=== PATIENT | male | born 1965 | race Caucasian/White ===

== ENCOUNTER 2020-06-07 19:17 | Emergency (ER) | payer MEDICAID, SELFPAY ==
[2020-06-07] VITALS (7 sets, daily range): BP systolic 142–203; BP diastolic 84–108; PULSE 100–111; RESP 15–29; TEMP 36.7; O2SAT 92–97; BMI 33.3
--- NOTE | 2020-06-07 19:18 | ECG_ITS ---
[facility] Test Date: 2020-06-07 Pat Name: Chris Vazquez Department: Room: Gender: Male Sales Enablement Specialist: : 1965 Requested By: Luis Alberto Ramirez Order Number: [id number] Papa MD: SHOLA BARCLAY Measurements Intervals [place] Rate: 106 P: 56 [place]: 162 QRS: 27 QRSD: 89 T: 70 QT: 332 QTc: 442 Interpretive Statements SINUS TACHYCARDIA ABNORMAL RHYTHM ECG Compared to ECG 03/29/2018 15:52:33 Sinus rhythm no longer present T-wave abnormality no longer present Electronically Signed On 06-08-2020 18:14:13 RETAIL PERFORMANCE SPECIALIST by SHOLA BARCLAY [id number]
--- NOTE | 2020-06-07 19:18 | XRR_ITS ---
PROCEDURE INFORMATION: Exam: XR Chest, 1 View Exam date and time: 06/07/2020 7:42 PM Age: 55 years old Clinical indication: Chest pain; Prior surgery; Surgery type: Stent; Additional info: Cp TECHNIQUE: Imaging protocol: XR of the chest Views: 1 view. COMPARISON: CR Chest 1 [place] [id number] 03/29/2018 12:45 PM FINDINGS: Lungs: Unremarkable. No consolidation. Pleural space: Unremarkable. No pleural effusion. No pneumothorax. Heart/Mediastinum: Unremarkable. No cardiomegaly. Bones/joints: No acute fracture. XR/XR chest 1V portable [id number] IMPRESSION: No acute findings.
--- NOTE | 2020-06-07 19:31 | W.ED.CHESTPA ---
HPI - Chest Pain General: Chief Complaint: Chest Pain Stated Complaint: CP Time Seen by Provider: 06/07/20 19:25 Source: patient and EMS Mode of arrival: EMS Limitations: no limitations History of Present Illness: HPI narrative: 55-year-old male who states he is having chest pain today. Patient came in by EMS was given aspirin and nitro and states that nitro took his pain away. He has a long history of heart disease and has had stents in the past. He states it was a pressure type pain in the center of his chest. He denies any shortness of breath. Patient denies any vomiting or diarrhea. Patient was diaphoretic per EMS. He states this feels like his previous heart attacks. Associated symptoms: Deny abdominal pain, dyspnea, fever(s), nausea or vomiting Review of Systems Const: Denies: fever(s), chills, body aches or change in appetite Eyes: Denies: blurry vision or eye discomfort ENMT: Denies: throat pain or dental pain Card: Reports: chest pain Resp: Denies: dyspnea GI: Denies: abdominal pain, nausea, vomiting or diarrhea : Denies: dysuria Musc: Denies: neck pain or back pain Skin/Breast: Denies: rash Neuro: Denies: headache(s) Psych: Denies: depression Melvin/Lymph: Denies: easy bruising All/Imm: Denies: urticaria PFSH ED PFSH: Medical History (Updated 06/07/20 @ 22:23 by Luis Alberto Ramirez MD) CAD (coronary atherosclerotic disease) CHF (congestive heart failure) Dyslipidemia GERD (gastroesophageal reflux disease) HTN (hypertension) Ischemic cardiomyopathy Major depressive disorder Myocardial infarct, old Tobacco abuse Surgical History S/P angioplasty with stent Social History Smoking and tobacco status: former smoker Alcohol intake: former Lives independently: No Housing: Shelter Marital status: Single Physical Exam Const: COMMON NORMALS: no acute distress, patient oriented x3 and healthy appearing HENMT: COMMON NORMALS: normocephalic and atraumatic HEAD & SCALP: normocephalic and atraumatic Eye: COMMON NORMALS: Equal, round and reactive pupils present and EOMs intact bilaterally PUPIL: Yes Equal, round and reactive pupils present Neck/C-Spine: COMMON NORMALS: full ROM and supple Chest: COMMONS NORMALS: normal inspection of the chest and normal palpation of entire chest wall Resp: COMMON NORMALS: normal respiratory effort, No retractions, No use of accessory muscles and clear to auscultation bilaterally AUSCULTATION: clear to auscultation bilaterally Cardio: COMMON NORMALS: regular rate, regular rhythm and No murmurs present (Cardio) RATE: regular rate RHYTHM: regular rhythm GI: COMMON NORMALS: Normal to inspection, nondistended, normoactive bowel sounds present, Soft to palpation, non-tender and no masses PALPATION: Yes Soft to palpation Extremity: COMMON NORMALS: normal to inspection and full ROM Neuro: COMMON NORMALS: patient oriented x3, moves all extremities and no focal motor deficits Psych: COMMON NORMALS: mental status grossly normal, Normal thought process present and cooperative THOUGHT PROCESS: Normal thought process present Skin: COMMON NORMALS: no rashes or lesions noted and no wounds GENERAL SKIN EXAM: no rashes or lesions noted Course Vital Signs: Vital signs: Vital Signs Temperature 98.0 F 06/07/20 19:17 Pulse Rate 105 H 06/07/20 22:13 Respiratory Rate 19 H 06/07/20 22:13 Blood Pressure 142/108 06/07/20 22:13 Pulse Oximetry 92 06/07/20 22:13 MDM - Chest Pain MDM Narrative: Medical decision making narrative: 2044 spoke to patient informed of initial troponin. He states he feels much improved and would like to go back home. I offered him admission stating he has multiple risk factors but he states he does not want to stay in the hospital. Was able to convince him to stay for a 2-hour troponin. 2223 Chris presents here with chest pain. Patient second troponin had no change. Patient refuses admission. Will discharge him back to the care home. He is to return if worsening. He understands agrees to plan. He has no signs of pulmonary embolism or aortic dissection. Lab Data: Labs: Lab Results 06/07/20 06/07/20 06/07/20 Range/Units 19:50 19:50 19:50 WBC 11.9 H (4.0-10.0) 10^3/ uL RBC 5.00 (4.1-5.3) 10^6/u L Hgb 13.1 (11.7-16.6) g/dL Hct 43.6 (42.0-52.0) % MCV 87.2 (80-94) fL MCH 26.2 L (28.0-34.0) pg MCHC 30.0 (30.0-36.0) g/dL RDW 13.9 (12.1-15.1) % Plt Count 553 H (130-400) 10^3/c mm MPV 10.0 (7.4-10.4) fL Neut % (Auto) 73.5 % Lymph % (Auto) 17.4 % [place] % (Auto) 6.6 % Eos % (Auto) 0.9 % Baso % (Auto) 1.3 % Neut # (Auto) 8.77 H (1.8-7.7) 10^3/u L Lymph # (Auto) 2.1 (0.8-4.8) 10^3/u L [place] # (Auto) 0.8 (0.2-0.9) 10^3/u L Eos # (Auto) 0.1 (0.0-0.8) 10^3/u L Baso # (Auto) 0.2 H (0.0-0.1) 10^3/u L Nucleated RBC % (a uto) 0 % Nucleated RBCs # 0.0 /100WBC D-Dimer (0-0.59) ug/mIFE U Sodium 135 L (136-145) mmol/L Potassium 3.7 (3.5-5.1) mmol/L Chloride 95 L (98-107) mmol/L Carbon Dioxide 27 (22-29) mmol/L Anion Gap 16.7 (5-19) BUN 17 (6-20) mg/dL Creatinine 1.0 (0.7-1.2) mg/dL GFR Calculation 77.6 L (90-130) mL/min Glucose 154 H (65-115) mg/dL Calculated Osmolal ity 285 (285-295) mOsm/k g Calcium 9.5 (8.5-10.5) mg/dL Total Bilirubin 0.2 (0.15-1.2) mg/dL AST 15 (0-40) U/L ALT 16 (0-41) U/L Alkaline Phosphata se 112 (40-130) IU/L Troponin T Baselin e 17 H (0-15) ng/L Delta Troponin T (0-10) ABS# Total Protein 7.5 (6.6-8.7) g/dL Albumin 3.9 (3.5-5.2) g/dL Globulin 3.6 (1.3-4.6) g/dL Lipase 19 (13-60) U/L 06/07/20 06/07/20 Range/Units 19:50 21:46 WBC (4.0-10.0) 10^3/ uL RBC (4.1-5.3) 10^6/u L Hgb (11.7-16.6) g/dL Hct (42.0-52.0) % MCV (80-94) fL MCH (28.0-34.0) pg MCHC (30.0-36.0) g/dL RDW (12.1-15.1) % Plt Count (130-400) 10^3/c mm MPV (7.4-10.4) fL Neut % (Auto) % Lymph % (Auto) % [place] % (Auto) % Eos % (Auto) % Baso % (Auto) % Neut # (Auto) (1.8-7.7) 10^3/u L Lymph # (Auto) (0.8-4.8) 10^3/u L [place] # (Auto) (0.2-0.9) 10^3/u L Eos # (Auto) (0.0-0.8) 10^3/u L Baso # (Auto) (0.0-0.1) 10^3/u L Nucleated RBC % (a uto) % Nucleated RBCs # /100WBC D-Dimer 0.41 (0-0.59) ug/mIFE U Sodium (136-145) mmol/L Potassium (3.5-5.1) mmol/L Chloride (98-107) mmol/L Carbon Dioxide (22-29) mmol/L Anion Gap (5-19) BUN (6-20) mg/dL Creatinine (0.7-1.2) mg/dL GFR Calculation (90-130) mL/min Glucose (65-115) mg/dL Calculated Osmolal ity (285-295) mOsm/k g Calcium (8.5-10.5) mg/dL Total Bilirubin (0.15-1.2) mg/dL AST (0-40) U/L ALT (0-41) U/L Alkaline Phosphata se (40-130) IU/L Troponin T Baselin e (0-15) ng/L Delta Troponin T 0.71 (0-10) ABS# Total Protein (6.6-8.7) g/dL Albumin (3.5-5.2) g/dL Globulin (1.3-4.6) g/dL Lipase (13-60) U/L Imaging Data^: CXR: Radiologist's impression: [place] [address] XRay Report Signed Patient: Chris Vazquez Unit #: [id number] : 1965 Age/Sex: 55 / M ADM Date: 06/07/20 Loc: ER Room/Bed: Attending Dr: Ordering Provider/Ordering MD: Luis Alberto Ramirez MD Date of Service: 06/07/20 Procedure(s): XR chest 1V portable [id number] Accession Number(s): [id number] Report Number: [id number] PROCEDURE INFORMATION: Exam: XR Chest, 1 View Exam date and time: 06/07/2020 7:42 PM Age: 55 years old Clinical indication: Chest pain; Prior surgery; Surgery type: Stent; Additional info: Cp TECHNIQUE: Imaging protocol: XR of the chest Views: 1 view. COMPARISON: CR Chest 1 [place] [id number] 03/29/2018 12:45 PM FINDINGS: Lungs: Unremarkable. No consolidation. Pleural space: Unremarkable. No pleural effusion. No pneumothorax. Heart/Mediastinum: Unremarkable. No cardiomegaly. Bones/joints: No acute fracture. XR/XR chest 1V portable [id number] IMPRESSION: No acute findings. EKG Data^: EKG 1: Attestation: I personally reviewed and interpreted this EKG as follows: EKG interpretation date: 06/07/20 EKG interpretation time: 19:21 Interpretation: sinus tach hr [address] or t wave abnormalities qrs 89 qtc 394 EKG 2: Attestation: I personally reviewed and interpreted this EKG as follows: EKG interpretation date: 06/07/20 EKG interpretation time: 21:33 Interpretation: sinus tach hr [address] or t wave abnormalities qrs 87 qtc 384 Discharge Plan Discharge Patient Disposition: Home Clinical Impression: Chest pain Qualifiers: Chest pain type: unspecified Qualified Code(s): R07.9 - Chest pain, unspecified Condition: Stable Prescriptions: No Action aspirin [Adult Low Dose Aspirin] 81 mg tablet,delayed release (DR/EC) 81 mg PO DAILY RF: 0 furosemide 40 mg tablet 40 mg PO QAM RF: 0 lisinopril 5 mg tablet 5 mg PO DAILY RF: 0 loratadine [Claritin] 10 mg tablet 10 mg PO DAILY RF: 0 venlafaxine 150 mg capsule,extended release 24hr 150 mg PO QAM RF: 0 simvastatin 10 mg tablet 10 mg PO .HS RF: 0 metoprolol tartrate 25 mg tablet 12.5 mg PO BID RF: 0 quetiapine 300 mg tablet 300 mg PO .HS RF: 0 methocarbamol 750 mg tablet 1,500 mg PO QID PRN (Reason: UNKNOWN) RF: 0 magnesium hydroxide [Milk of Magnesia] 400 mg/5 mL suspension 30 ml PO DAILY PRN (Reason: Constipation) RF: 0 acetaminophen [Tylenol] 325 mg tablet 650 mg PO QID PRN (Reason: Pain) RF: 0 Provera 10 mg Tablet 10 mg PO DAILY RF: 0 omeprazole 20 mg Capsule,Delayed Release(Dr/Ec) 20 mg PO DAILY RF: 0 Flonase 50 mcg/actuation [place],Suspension 2 spray INTRANASAL DAILY RF: 0 Discharge Orders: Discharge Order (Routine); Ordered 06/07/20 Ordered By: Luis Alberto Ramirez Referrals: Raul Vergara MD [Primary Care Provider] - 1-3 days Discharge Diet: Advance as tolerated Discharge Activity: Resume usual activity Patient Instructions: Chest Pain (ED) Coding Level of Care Code ED General Road Foreman for Chg Fwd Exam Comprehensive
[2020-06-07 20:06] LABS: Basophils # 0.2 10^3/uL (0.0-0.1); Basophils % 1.3 %; Eosinophils # 0.1 10^3/uL (0.0-0.8); Eosinophils % 0.9 %; Hematocrit 43.6 % (42.0-52.0); Hemoglobin 13.1 g/dL (11.7-16.6); Lymphocytes # 2.1 10^3/uL (0.8-4.8); Lymphocytes % 17.4 %; Mean Corpuscular Hemoglobin 26.2 pg (28.0-34.0); Mean Corpuscular Volume 87.2 fL (80-94); Monocytes # 0.8 10^3/uL (0.2-0.9); Monocytes % 6.6 %; Neutrophils # 8.77 10^3/uL (1.8-7.7); Neutrophils % 73.5 %; Nucleated Red Blood Cells % 0 %; Platelet Count 553 10^3/cmm (130-400); Red Cell Distribution Width 13.9 % (12.1-15.1); White Blood Count 11.9 10^3/uL (4.0-10.0)
[2020-06-07 20:19] LABS: D Dimer 0.41 ug/mIFEU (0-0.59)
[2020-06-07 20:29] LABS: Alanine Aminotransferase 16 U/L (0-41); Albumin Level 3.9 g/dL (3.5-5.2); Alkaline Phosphatase 112 IU/L (40-130); Anion Gap 16.7 (5-19); Aspartate Amino Transferase 15 U/L (0-40); Blood Urea Nitrogen 17 mg/dL (6-20); Calcium 9.5 mg/dL (8.5-10.5); Carbon Dioxide 27 mmol/L (22-29); Chloride 95 mmol/L (98-107); Globulin 3.6 g/dL (1.3-4.6); Glomerular Filtration Rate 77.6 mL/min (90-130); Glucose 154 mg/dL (65-115); Lipase 19 U/L (13-60); Osmolality Calculated 285 mOsm/kg (285-295); Potassium 3.7 mmol/L (3.5-5.1); Sodium 135 mmol/L (136-145); Total Bilirubin 0.2 mg/dL (0.15-1.2); Total Protein 7.5 g/dL (6.6-8.7)
[2020-06-07 20:31] LABS: Troponin(5th) Baseline 17 ng/L (0-15)
--- NOTE | 2020-06-07 21:18 | PC.NURSE ---
Took call from Pamella SUÁREZ at [facility] for pt update
--- NOTE | 2020-06-07 21:18 | PC.NURSE ---
pt wears 2L oxygen via nasal cannula and also wears CPAP at night
[2020-06-07] MEDS: labetalol 5 mg/mL SDV 20mL 10 MG IVP (22:01)
[2020-06-07 22:20] LABS: Troponin 5 2HR 17.71 ng/L (0-15); Troponin 5 2HR Delta 0.71 ABS# (0-10)
--- NOTE | 2020-06-07 22:45 | PC.NURSE ---
Called Case management for assistance with sitting up medride for pt.
--- NOTE | 2020-06-07 22:46 | PC.NURSE ---
Took call from Pamella SUÁREZ at [facility] for patient update.
--- NOTE | 2020-06-08 01:08 | PC.SOCIAL ---
[employer] arranged via [facility]. Trip #[id number]
== END 2020-06-07 22:37 | disposition home or self-care (01) ==
PROVIDERS: Emergency Provider Emergency Medicine; PCP Internal Medicine
DX: R07.9 Chest pain, unspecified (principal); Z79.82 Long term (current) use of aspirin; I25.10 Atherosclerotic heart disease of native coronary artery without angina pectoris; I11.0 Hypertensive heart disease with heart failure; I50.9 Heart failure, unspecified; E78.5 Hyperlipidemia, unspecified; I25.2 Old myocardial infarction; Z87.891 Personal history of nicotine dependence
CPT/HCPCS: 12345; 71045; 80053; 83690; 84484; 85025; 85378; 93005; 96374; 96375; 99283; J3490

== ENCOUNTER → 2021-03-12 11:28 | Outpatient (BNVA) | payer MEDICAID, SELFPAY | PROVIDERS: PCP Internal Medicine; Visit Provider Internal Medicine Cardiovascular Disease | DX: R06.02 Shortness of breath (principal); I50.33 Acute on chronic diastolic (congestive) heart failure; R07.9 Chest pain, unspecified; R07.89 Other chest pain; R06.00 Dyspnea, unspecified; I50.812 Chronic right heart failure; I10 Essential (primary) hypertension | CPT/HCPCS: 80048; 83880 ==

== ENCOUNTER 2021-04-22 08:22 | Outpatient (CLI) | payer MEDICAID, SELFPAY ==
--- NOTE | 2021-04-22 08:45 | USCV_ITS ---
Chris Vazquez Age: 56 Gender: M : 1965 Exam Date: 04/22/2021 08:59 Ordering Phys: Mary Kingston MD ([email or web address]) Technologist: Ex[place] [facility] [place]: CHEST PAIN BP: 125 / 70 HR: 102 Rhythm: Sinus Technical Quality: Adequate MEASUREMENTS (Male / Female) Normal Values 2D ECHO LV Diastolic Diameter PLAX 5.2 cm 4.2 - 5.9 / 3.9 - 5.3 cm LV Systolic Diameter PLAX 4.6 cm IVS Diastolic Thickness 0.9 cm 0.6 - 1.0 / 0.6 - 0.9 cm IVS Systolic Thickness 1.3 cm LVPW Diastolic Thickness 1.1 cm 0.6 - 1.0 / 0.6 - 0.9 cm LVPW Systolic Thickness 1.4 cm LVOT Diameter 2.0 cm LV Ejection Fraction 2D Teich 22.2 % LV Ejection Fraction MOD 2C 44.2 % LV Ejection Fraction 2C AL 43.8 % LA Diameter 3.4 cm LA Width 3.7 cm LA Height 5.7 cm RA Width 3.0 cm RA Height 4.6 cm Aorta at Sinotubular Diameter 2.5 cm M-MODE MV E Point Septal Separation 1.7 cm DOPPLER AV Peak Velocity 126.0 cm/s LVOT Peak Velocity 100.0 cm/s AV Area Cont Eq vti 3.1 cm squared AV Area Cont Eq pk 2.6 cm squared MV Area PHT 5.0 cm squared Mitral E to A Ratio 0.9 MV E' Velocity 45.5 cm/s Mitral E to MV E' Ratio 10.6 Mitral E to LV E' Lateral Ratio 10.9 Mitral E to LV E' Septal Ratio 10.5 TR Peak Velocity 142.0 cm/s TR Peak Gradient 8.1 mmHg TV Peak E Velocity 72.0 cm/s Right Atrial Pressure 3.0 mmHg Pulmonary Artery Systolic Pressu 11.1 mmHg FINDINGS Left Ventricle Diffuse hypokinesia of the left ventricular ejection fraction of 44%. LV size, upper limit of normal.Grade I/IV diastolic dysfunction (abnormal relaxation filling pattern), normal to mildly elevated filling pressures. Right Ventricle The right ventricle is normal in size and function. Right Atrium The right atrium is normal in size. Left Atrium Upper limit of normal size Mitral Valve No gross abnormalities noted Aortic Valve Trileaflet with no gross abnormalities noted Tricuspid Valve No gross abnormalities noted Pulmonic Valve Trace pulmonary valve regurgitation. Pericardium Normal pericardium without effusion. Aorta Normal ascending aorta dimension. CONCLUSIONS 1. Diffuse hypokinesia of the left ventricular ejection fraction of 44%. LV size, upper limit of normal.Grade I/IV diastolic dysfunction (abnormal relaxation filling pattern), normal to mildly elevated filling pressures. 2. Trace of pulmonary rehabilitation. 3. No intracardiac masses. 4. No pericardial effusion. Compared to the study from 11/27/2017, there is significant improvement in the LV ejection fraction Dr Mary Kingston MD [facility] (Electronically Signed) Final Date: 22 April 2021 23:26 S
== END 2021-04-22 08:23 | disposition home or self-care (01) ==
PROVIDERS: PCP Internal Medicine; Visit Provider Internal Medicine Cardiovascular Disease
DX: R06.00 Dyspnea, unspecified (principal); I50.812 Chronic right heart failure; R07.9 Chest pain, unspecified
CPT/HCPCS: 93306

== ENCOUNTER 2021-07-08 16:02 | Outpatient (CLI) | payer MEDICAID, SELFPAY ==
[2021-07-08 16:21] LABS: Add Urine Microscopic? NO; Charge for UA Resulting for Rev
[2021-07-08 17:17] LABS: Alanine Aminotransferase 22 U/L (0-41); Albumin Level 4.1 g/dL (3.5-5.2); Alkaline Phosphatase 106 IU/L (40-130); Anion Gap 18.2 (5-19); Aspartate Amino Transferase 24 U/L (0-40); Blood Urea Nitrogen 14 mg/dL (6-20); Calcium 8.5 mg/dL (8.5-10.5); Carbon Dioxide 24 mmol/L (22-29); Chloride 101 mmol/L (98-107); Globulin 2.8 g/dL (1.3-4.6); Glomerular Filtration Rate 77.3 mL/min (90-130); Glucose 118 mg/dL (65-115); Osmolality Calculated 290 mOsm/kg (285-295); Potassium 4.2 mmol/L (3.5-5.1); Sodium 139 mmol/L (136-145); Total Bilirubin 0.2 mg/dL (0.15-1.2); Total Protein 6.9 g/dL (6.6-8.7)
[2021-07-08 18:00] LABS: Bilirubin Urine Neg (Negative); Blood Urine Neg (Negative); Glucose Urine UA Norm (Normal); Ketones Urine Negative (Negative); Leukocyte Esterase Urine Negative (Negative); Nitrate Urine Negative (Negative); Protein Urine Neg (Negative); Urine Appearance Clear (CLEAR); Urine Color Yellow (Yellow); Urobilinogen Urine Norm (Negative); pH Urine 7 (5-7)
== END 2021-07-08 16:03 | disposition home or self-care (01) ==
PROVIDERS: PCP Internal Medicine; Visit Provider Internal Medicine
DX: R10.9 Unspecified abdominal pain (principal)
CPT/HCPCS: 80053; 81003

== ENCOUNTER 2021-07-10 06:54 | Outpatient (CLI) | payer MEDICAID, SELFPAY ==
[2021-07-10] MEDS: iohexol 350 mg/mL 100 mL Btl IV (07:30)
--- NOTE | 2021-07-10 07:30 | CTR_ITS ---
PROCEDURE INFORMATION: Exam: CT Abdomen And Pelvis With Contrast Exam date and time: 07/10/2021 7:30 AM Age: 56 years old Clinical indication: Abdominal pain; Additional info: Diffuse abd pain, approved 07/08/2021-08/07/2021 # [id number] TECHNIQUE: Imaging protocol: Computed tomography of the abdomen and pelvis with contrast. Total images: 275 Radiation optimization: All CT scans at this facility use at least one of these dose optimization techniques: automated exposure control; mA and/or kV adjustment per patient size (includes targeted exams where dose is matched to clinical indication); or iterative reconstruction. Contrast material: OMNI 350; Contrast volume: 95 ml; Contrast route: INTRAVENOUS (IV); COMPARISON: CT abdomen pelvis w con* [id number] 05/07/2017 8:02 PM RADIATION DOSE METRICS: Total DLP (mGy-cm): 1839.81 FINDINGS: Lungs: Nonspecific minimal opacity in the right lung base, favoring atelectasis or pneumonia. Liver: Normal. No mass. Gallbladder and bile ducts: Normal. No calcified stones. No ductal dilation. Pancreas: Normal. No ductal dilation. Spleen: Normal. No splenomegaly. Adrenal glands: Normal. No mass. Kidneys and ureters: Normal. No hydronephrosis. Stomach and bowel: Unremarkable. No obstruction. No mucosal thickening. Appendix: No evidence of appendicitis. Intraperitoneal space: Unremarkable. No free air. No significant fluid collection. Vasculature: Mild atherosclerotic disease is evident. Lymph nodes: Unremarkable. No enlarged lymph nodes. Urinary bladder: Unremarkable as visualized. Reproductive: Unremarkable as visualized. Bones/joints: Old left rib fracture evident. Soft tissues: Ventral hernia contains only fat and is not inflamed. CT/CT abdomen pelvis w con* [id number] IMPRESSION: 1. Nonspecific minimal opacity in the right lung base, favoring atelectasis or pneumonia. 2. Ventral hernia contains only fat and is not inflamed. 3. No acute intra-abdominal pathology.
== END 2021-07-10 06:55 | disposition home or self-care (01) ==
LOC: RAD 06:55
PROVIDERS: PCP Internal Medicine; Visit Provider Internal Medicine
DX: R10.9 Unspecified abdominal pain (principal); K43.9 Ventral hernia without obstruction or gangrene
CPT/HCPCS: 74177

== ENCOUNTER 2021-07-28 07:37 | Day surgery (SDC) | payer MEDICAID, SELFPAY ==
[2021-07-23 14:00] VITALS: BMI 41.5
--- NOTE | 2021-07-28 07:11 | W.PM.OPSFHP ---
Same Day Surgery H&P Indication for Procedure/HPI DATE OF PROCEDURE: July 28, 2021 CHIEF COMPLAINT/INDICATIONFOR SURGICAL PROCEDURE: Routine screening PREOP DIAGNOSIS: Routine screening PLANNED PROCEDURE: Operation Date: 07/28/21 09:15 Proposed Procedures p Colonoscopy 07158 Z12.11(Not Applicable) - Raul Vergara MD Medications/Allergies* Home Medications Medication Instructions Recorded Confirmed Type aspirin 81 mg tablet,delayed 81 mg PO DAILY tab 07/14/19 07/25/21 History release furosemide 40 mg tablet 40 mg PO QAM 07/14/19 07/25/21 History loratadine 10 mg tablet 10 mg PO DAILY tab 07/14/19 07/25/21 History simvastatin 10 mg tablet 10 mg PO .HS tab 07/14/19 07/25/21 History venlafaxine 150 mg 150 mg PO QAM 07/14/19 07/25/21 History capsule,extended release 24 hr metoprolol tartrate 25 mg tablet 12.5 mg PO BID tab 07/18/19 07/25/21 History acetaminophen 325 mg tablet 650 mg PO QID PRN 10/25/19 07/25/21 History magnesium hydroxide 400 mg/5 mL 30 ml PO DAILY PRN ml 10/25/19 07/25/21 History oral suspension methocarbamol 750 mg tablet 1,500 mg PO QID PRN tab 10/25/19 07/25/21 History fluticasone propionate [Flonase] 2 spray INTRANASAL DAILY 06/07/20 07/25/21 History omeprazole 20 mg PO DAILY 06/07/20 07/25/21 History Allergies/Adverse Reactions Allergy/AdvReac Type Severity Reaction Status Date / Time milk Allergy Vomiting Verified 07/25/21 11:48 Pertinent History/Comorbid Conditions* Medical History (Updated 07/21/21 @ 13:26 by Trace Palomares MD) CAD (coronary atherosclerotic disease) CHF (congestive heart failure) Dyslipidemia GERD (gastroesophageal reflux disease) HTN (hypertension) Ischemic cardiomyopathy Major depressive disorder Myocardial infarct, old Surgical History (Updated 03/12/21 @ 10:55 by Mary Kingston MD) Hx of left knee surgery Hx of left knee surgery S/P angioplasty with stent Family History (Updated 03/12/21 @ 10:34 by Lalita Darden RN) CAD (coronary artery disease) Father Dementia Mother Cancer Family/Other Denies family history of Diabetes Clotting disorder Chronic kidney disease (CKD) Suicide Anesthesia complication Bleeding disorder Lung disease Stroke Social History Alcohol intake: former Lives independently: No Housing: Intermediate Marital status: Single Pertinent Exam Findings alert, oriented x 3, clear to auscultation bilaterally, regular rate & rhythm, operative site marked and procedure specific exam findings Recommendations Surgery/Procedure today Coding Level of Care Code Acute Banking Pin Adjuster for Ashley Hooper
--- NOTE | 2021-07-28 07:54 | ANES.PREANE2 ---
Pre-Anesthetic Assessment Pre-Anesthetic Assessment: Height/Weight: Height 1.65 m Weight 113.398 kg Preop Diagnosis: Routine screening Proposed Procedure: Operation Date: 07/28/21 09:15 Proposed Procedures p Colonoscopy 85995 Z12.11(Not Applicable) - Raul Vergara MD Was Beta Wally taken within 24 hours: Yes Was Clonidine taken within 24 hours: N/A Social: Social History: No alcohol and No tobacco Exam: Pre-Anes Outpt Exam: alert, oriented x 3, clear to auscultation bilaterally and regular rate & rhythm Airway: Submandibular: WNL Cervical ROM: WNL MP: 2 Dentition: Chipped and False (uppers) Additional comments: poor dentition Pulmonary: Pulmonary: COPD and Sleep apnea Comments: Home O2 2L CV/HEM: CV/HEM: CAD (Stents), CHF, HTN and MT GI: GI: GERD Metabolic: Metabolic: Morbid obesity Neuropsych: Neuropsych: Anxiety and Depression Anesthetic Plan: ASA status: 3 Anesthesia: General Risk of > 500 ml blood loss (7ml/kg in children): No PFSH Anesthesia PFSH: Medical History CAD (coronary atherosclerotic disease) CHF (congestive heart failure) Dyslipidemia GERD (gastroesophageal reflux disease) HTN (hypertension) Ischemic cardiomyopathy Major depressive disorder Myocardial infarct, old Surgical History Hx of left knee surgery Hx of left knee surgery S/P angioplasty with stent Family History Family/Other Cancer Father CAD (coronary artery disease) Mother Dementia Denies family history of Diabetes Clotting disorder Chronic kidney disease (CKD) Suicide Anesthesia complication Bleeding disorder Lung disease Stroke Social History Alcohol intake: former Lives independently: No Housing: Group Home Marital status: Single Data Anesthesia Cardiac Studies: Echocardiogram 04/22/21
[2021-07-28 08:40] VITALS: BP 145/82; PULSE 92; RESP 22; TEMP 36.7; O2SAT 98
[2021-07-28] MEDS: sodium chloride 0.9% 1,000 ML 30 ML IV (08:51)
[2021-07-28 10:02] VITALS: BP 140/88; PULSE 105; RESP 18; TEMP 36.2; O2SAT 92
[2021-07-28 10:18] VITALS: BP 120/92; PULSE 100; RESP 18; O2SAT 95
--- NOTE | 2021-07-28 14:14 | ANE.PACU2 ---
Inpatient post-anesthesia follow up: Airway intact: Yes Vital signs: Temperature 97.2 F Pulse Rate 100 Respiratory Rate 18 Blood Pressure 120/92 Pulse Oximetry 95 Oxygen Delivery Me thod Nasal Cannula Oxygen Flow Rate 2 Fraction of Inspir ed Oxygen Hydration adequate: Yes Nausea and vomiting: No Pain level: 1 Mental status: Baseline
== END 2021-07-28 10:32 | disposition home or self-care (01) ==
PROVIDERS: PCP Internal Medicine; Visit Provider Internal Medicine
PROC: 0DJD8ZZ Inspection of Lower Intestinal Tract, Via Natural or Artificial Opening Endoscopic (ICD-10-PCS; CPT 45378; principal; 2021-07-28 09:15)
DX: Z12.11 Encounter for screening for malignant neoplasm of colon (principal); D12.3 Benign neoplasm of transverse colon; Z79.82 Long term (current) use of aspirin; I25.10 Atherosclerotic heart disease of native coronary artery without angina pectoris; I11.0 Hypertensive heart disease with heart failure; I50.9 Heart failure, unspecified; R78.5 Finding of other psychotropic drug in blood; K21.9 Gastro-esophageal reflux disease without esophagitis; F32.9 Major depressive disorder, single episode, unspecified; I25.2 Old myocardial infarction; Z82.49 Family history of ischemic heart disease and other diseases of the circulatory system; Z95.5 Presence of coronary angioplasty implant and graft; Z99.81 Dependence on supplemental oxygen; G47.30 Sleep apnea, unspecified
CPT/HCPCS: 45385; 88305; J2704; J7030

== ENCOUNTER 2021-07-31 09:46 | Day surgery (SDC) | payer MEDICAID, SELFPAY ==
[2021-07-28 09:05] VITALS: BMI 41.9
[2021-07-31] VITALS (13 sets, daily range): BP systolic 72–162; BP diastolic 57–97; PULSE 99–147; RESP 12–20; TEMP 36.7–36.8; O2SAT 83–100
[2021-07-31] MEDS: sodium chloride 0.9% 1,000 ML 30 ML IV (10:35)
--- NOTE | 2021-07-31 10:38 | ANES.PREANE2 ---
Pre-Anesthetic Assessment Pre-Anesthetic Assessment: Height/Weight: Height 1.65 m Weight 114.305 kg Temp Pulse Resp BP Pulse Ox 98.2 F 99 18 151/97 99 07/31/21 10:25 07/31/21 10:25 07/31/21 10:25 07/31/21 10:25 07/31/21 10:25 Preop Diagnosis: Incarcerated ventral hernia Proposed Procedure: Operation Date: 07/31/21 11:30 Proposed Procedures p Laparoscopic Ventral Hernia Repair w/ Mesh 11966 K43.6(Not Applicable) - Trace Palomares MD Familial anesthetic complications: None Was Beta Wally taken within 24 hours: Yes Was Clonidine taken within 24 hours: N/A Last intake: Intake Last Liquid Date 07/30/21 Last Liquid Time 22:00 Last Solid Date 07/30/21 Last Solid Time 19:00 Social: Social History: No alcohol and No tobacco Exam: Pre-Anes Outpt Exam: alert, oriented x 3, clear to auscultation bilaterally and regular rate & rhythm Airway: MP: 3 Dentition: Chipped and False Pulmonary: Pulmonary: COPD (2 L NC) and Sleep apnea CV/HEM: CV/HEM: CAD (stents (> 1year)), CHF, HTN and MA Comments: Echo CONCLUSIONS 1. Diffuse hypokinesia of the left ventricular ejection fraction of 44%. LV size, upper limit of normal.Grade I/IV diastolic dysfunction (abnormal relaxation filling pattern), normal to mildly elevated filling pressures. 2. Trace of pulmonary rehabilitation. 3. No intracardiac masses. 4. No pericardial effusion. Compared to the study from 11/27/2017, there is significant improvement in the LV ejection fraction GI: GI: GERD Metabolic: Metabolic: Morbid obesity Anesthetic Plan: ASA status: 3 Anesthesia: General Risk of > 500 ml blood loss (7ml/kg in children): No Medications/Allergies Current Medications: Current Medications Generic Name Dose Route Start Last Admin Trade Name Freq PRN Reason Stop Dose Admin Sodium Chloride 1,000 mls @ 30 ml s/hr 07/31/21 10:15 07/31/21 10:35 Sodium Chloride 0.9% IV 08/01/21 10:14 30 mls/hr .Q24H LEILA Administration PFSH Anesthesia PFSH: Medical History CAD (coronary atherosclerotic disease) CHF (congestive heart failure) Dyslipidemia GERD (gastroesophageal reflux disease) HTN (hypertension) Ischemic cardiomyopathy Major depressive disorder Myocardial infarct, old Surgical History Hx of left knee surgery Hx of left knee surgery S/P angioplasty with stent Family History Family/Other Cancer Father CAD (coronary artery disease) Mother Dementia Denies family history of Diabetes Clotting disorder Chronic kidney disease (CKD) Suicide Anesthesia complication Bleeding disorder Lung disease Stroke Social History Alcohol intake: former Lives independently: No Housing: Skilled Nursing Marital status: Single Data Anesthesia Cardiac Studies: Echocardiogram 04/22/21
--- NOTE | 2021-07-31 11:55 | W.PM.OPSUD ---
Surgery/Procedure H&P Update DATE OF PROCEDURE: July 31, 2021 DATE H&P PERFORMED: 07/21/21 H&P UPDATE INFORMATION: I have reviewed H&P completed within last 30 days, I have examined patient prior to procedure and No changes to prior documentation PREOP DIAGNOSIS: Incarcerated ventral hernia PLANNED PROCEDURE: Operation Date: 07/31/21 11:30 Proposed Procedures p Laparoscopic Ventral Hernia Repair w/ Mesh 67348 K43.6(Not Applicable) - Trace Palomares MD
[2021-07-31 12:04] LABS: Blood Urea Nitrogen 14 mg/dL (6-20); Calcium 8.5 mg/dL (8.5-10.5); Carbon Dioxide 26 mmol/L (22-29); Chloride 99 mmol/L (98-107); Glomerular Filtration Rate 116.7 mL/min (90-130); Glucose 101 mg/dL (65-115); Osmolality Calculated 289 mOsm/kg (285-295); Sodium 139 mmol/L (136-145)
--- NOTE | 2021-07-31 14:20 | P.OP_ITS ---
Operative Report Date of procedure: July 31, 2021 Pre-op Diagnosis: Incarcerated ventral hernia Post-op Diagnosis: Incarcerated ventral hernia containing omentum measuring 5 x 5 cm Procedure Done: Laparoscopic repair of incarcerated ventral hernia with ventralight ST mesh measuring 15 x 15 cm Pathology: none sent Surgeon: Trace Palomares Anesthesia: General Condition: stable Disposition: PACU Procedure: The patient was taken to the Operating Room and was intubated under general anesthesia after the antibiotic had been administered. The abdomen was prepped and draped in a sterile manner. Using a 15 blade, a 2-cm incision was made in the left upper quadrant in the anterior axillary line and pneumoperitoneum was created using Verres needle. A 10 mm Kalpesh port was placed and 15 mm of pneumoperitoneum was created after a 10 mm 30? scope had been introduced. 5 mm port was placed at the level of the umbilicus and left lower quadrant under direct visualization. Using a combination of electrocautery and scissors the peritoneum in the midline was taken down and the omental fat within the ventral hernial sac was reduced. The falciform ligament was divided to create adequate space for placement of mesh. A spinal needle was introduced through the abdominal wall and the edges of the hernial defect were marked and measured 5 x 5 cm. A 5 cm margin was marked on the abdominal wall on the outer edge of the hernial defect. 15 x [address] mesh was selected and 4 separate 2-0 [place]Yobani sutures were placed at the 4 corners of the mesh. Grannie needle was passed through the stab incisions and used to grasp the free ends of the [place]Yobani sutures which were then used to pull the mesh up against the abdominal wall; 5 mm SecurStraps were placed 1 cm apart along the edge of the mesh to hold it against the abdominal wall. At the end of this, it was noted that the mesh was well positioned over the hernial defect. 20 cc of saline mixed with 20cc of Exparel mixed with 20cc of 0.5% Marcaine was infiltrated in the midclavicular line bilaterally under laparoscopic visualization for a TAP block. All ports were removed under direct visualization and there was no bleeding noted from the port sites. The external oblique aponeurosis was approximated at LUQ port site using figure of eight 0 Vicryl suture. The subcutaneous tissue was approximated using 3-0 Vicryl sutures. The skin at all 3 port sites was closed using subcuticular 4-0 Monocryl suture. The stab incisions and the port sites were covered with Dermabond. Abdominal binder was placed at the end of the procedure and the patient was extubated and transferred to recovery room in stable condition.
--- NOTE | 2021-07-31 15:11 | P.PCN_ITS ---
PACU note PACU note: VSS, Good respiratory effort, report to BULL FIDDLE PLAYER Post-Anesthesia Exam: awake
--- NOTE | 2021-07-31 15:11 | PM.PACU ---
PACU note PACU note: VSS, Good respiratory effort, report to MICROBIOLOGY QUALITY CONTROL TECHNICIAN Post-Anesthesia Exam: awake
--- NOTE | 2021-07-31 15:12 | PC.NURSE ---
Airway inserted after arrival to recovery by Rodrigo Irene DONOR SERVICES SPECIALIST
--- NOTE | 2021-07-31 15:23 | PC.NURSE ---
Upon arrival to recovery, pt did not complain of pain, he was confused and attempting to get out of bed.
[2021-07-31] MEDS: ondansetron 2 mg/ML SDV 2 mL 4 MG IVP (16:05)
--- NOTE | 2021-07-31 16:13 | SUR.PHASEII ---
1547 RECEIVED FROM PACU VIA Elizabeth SCHAEFFERRN, PT CONFUSED AND WANTING TO GET UP ON SIDE OF BED,ASSISTED PT UP TO SIDE OF BED WITH DAUGHTER PHOEBE AND PT C/O PAIN AND NAUSEA 1600 ASSISTED PT BACK TO BED TO LYING DOWN WITH HELP OF MARCELINO LIN AND PT ASLEEP AND SNORING,DIS TOLERATE A SIP OF SPRITE AND A FEW ICE CHIPS WHILE SITTING UP ON SIDE OF BED
--- NOTE | 2021-07-31 16:18 | ANE.PACU2 ---
Inpatient post-anesthesia follow up: Airway intact: Yes Vital signs: Temperature 98.3 F Pulse Rate 125 Respiratory Rate 18 Blood Pressure 130/65 Pulse Oximetry 92 Oxygen Delivery Me thod Nasal Cannula Oxygen Flow Rate 2.0 Fraction of Inspir ed Oxygen Hydration adequate: Yes Nausea and vomiting: No Pain level: 2 Mental status: Baseline
--- NOTE | 2021-07-31 16:20 | SUR.PHASEII ---
1610 BOTH DAUGHTERS HAVE LEFT BRING CHILDREN BACK TO [place] AND THEN WILL RETURN
[2021-07-31] MEDS: HYDROcodone-acetaminophen 5-325 mg Tablet 1 TAB PO (17:00)
--- NOTE | 2021-07-31 17:41 | SUR.PHASEII ---
1739 REPORT GIVEN TO EBONY AT [facility] AND VERBALIZED UNDERSTANDING
== END 2021-07-31 17:35 | disposition home or self-care (01) ==
PROVIDERS: PCP Internal Medicine; Visit Provider Surgery
PROC: 0WQF4ZZ Repair Abdominal Wall, Percutaneous Endoscopic Approach (ICD-10-PCS; CPT 49653; principal; 2021-07-31 11:30)
DX: K43.6 Other and unspecified ventral hernia with obstruction, without gangrene (principal); J44.9 Chronic obstructive pulmonary disease, unspecified; Z99.81 Dependence on supplemental oxygen; G47.30 Sleep apnea, unspecified; I25.10 Atherosclerotic heart disease of native coronary artery without angina pectoris; Z95.5 Presence of coronary angioplasty implant and graft; I11.0 Hypertensive heart disease with heart failure; I50.9 Heart failure, unspecified; I25.2 Old myocardial infarction; Z82.49 Family history of ischemic heart disease and other diseases of the circulatory system
CPT/HCPCS: 49653; 36415; 80048; 96374; C1718; C9290; J0330; J1100; J2250; J2405; J2704; J2710; J3010; J3490; J7030

== ENCOUNTER 2021-12-03 21:23 | Emergency (ER) | payer MEDICAID, SELFPAY ==
[2021-12-03 21:29] VITALS: BP 113/63; PULSE 107; RESP 18; TEMP 36.8; O2SAT 93
--- NOTE | 2021-12-03 21:29 | ECG_ITS ---
[facility] Test Date: 2021-12-03 Pat Name: Chris Vazquez Department: Room: Gender: Male Brick Mason: : 1965 Requested By: Jero Lennon Order Number: [id number] Elam MD: Clare Hunter M.D. Measurements Intervals [place] Rate: 96 P: 56 MD: 175 QRS: 28 QRSD: 97 T: 58 QT: 330 QTc: 418 Interpretive Statements SINUS RHYTHM Compared to ECG 06/07/2020 19:21:08 Sinus tachycardia no longer present Electronically Signed On 12-03-2021 21:48:27 CDT by Clare Hunter M.D. [email or web address]
--- NOTE | 2021-12-03 21:29 | XRR_ITS ---
PROCEDURE INFORMATION: Exam: XR Chest Exam date and time: 12/03/2021 9:50 PM Age: 56 years old Clinical indication: Chest wall pain; Additional info: Chest pain TECHNIQUE: Imaging protocol: XR of the chest. Views: 1 view. COMPARISON: CR XR chest 1V portable [id number] 06/07/2020 7:27 PM FINDINGS: Lungs: Lungs are clear bilaterally. Pleural spaces: No pleural effusion. No pneumothorax. Heart/Mediastinum: Stable mild enlargement of the cardiac silhouette. Mediastinal contours are unremarkable. Bones/joints: Unremarkable for age. XR/XR chest 1V portable [id number] IMPRESSION: 1. No acute cardiopulmonary process. 2. Incidental/nonacute findings are listed in the report.
[2021-12-03 21:38] LABS: Basophils # 0.1 10^3/uL (0.0-0.1); Basophils % 1.1 %; Eosinophils # 0.1 10^3/uL (0.0-0.8); Eosinophils % 0.8 %; Hematocrit 36.5 % (42.0-52.0); Hemoglobin 11.1 g/dL (11.7-16.6); Lymphocytes % 19.1 %; Mean Corpuscular HGB Conc 30.4 g/dL (30.0-36.0); Mean Corpuscular Hemoglobin 24.5 pg (28.0-34.0); Mean Corpuscular Volume 80.6 fl (80-94); Mean Platelet Volume 10.5 fL (7.4-10.4); Monocytes # 0.8 10^3/uL (0.2-0.9); Monocytes % 7.8 %; Neutrophils # 7.29 10^3/uL (1.8-7.7); Nucleated Red Blood Cells % 0 %; Platelet Count 409 10^3/cmm (130-400); Red Blood Count 4.53 10^6/uL (4.1-5.3); White Blood Count 10.3 10^3/uL (4.0-10.0)
[2021-12-03 22:00] VITALS: BP 134/83; PULSE 101; RESP 19; O2SAT 93
[2021-12-03 22:02] LABS: Anion Gap 13.9 (5-19); Blood Urea Nitrogen 16 mg/dL (6-20); Calcium 8.8 mg/dL (8.5-10.5); Carbon Dioxide 28 mmol/L (22-29); Chloride 99 mmol/L (98-107); Glomerular Filtration Rate 87.3 mL/min (90-130); Glucose 139 mg/dL (65-115); Osmolality Calculated 287 mOsm/kg (285-295); Potassium 3.9 mmol/L (3.5-5.1); Sodium 137 mmol/L (136-145); Troponin(5th) Baseline 15 ng/L (0-15)
--- NOTE | 2021-12-03 22:07 | ED_ITS ---
Documented by User: Jero Lennon MD 12/05/21 19:43 HPI - General Adult General: Chief complaint: Chest Pain Stated complaint: cp Time Seen by Provider: 12/03/21 21:30 History of Present Illness: CC: Chest Pain HPI: This is a [56] yo patient hx of CAD s/p stent x 1, CHF, HLD presenting to the ED complaining of acute sudden onset of chst pain since 12pm WITHOUT radiation to the back or shoulders . No associated with shortness of breath, chest pain or dyspnea on exertion. Pain is not tearing in nature and does not radiate to the back. Pain not associated with vomiting or PO intake. Denies any recent sympathomimetic drug use. Patient denies any cough. Denies palpitations, dysphagia, diaphoresis, radiation of pain to bilateral arms, jaw. Denies F/N/V/D. Patient denies any recent immobility, surgery, unilateral leg swelling, or prior PE. Patient denies any orthopnea. Onset: noon today Duration: ongoing Location: home Severity: mild/moderate Associated symptoms: Reports chest pain; Deny dyspnea, nausea, rash, palpitations or vomiting Review of Systems Const: Denies: fever(s) or chills Eyes: Denies: change in vision ENMT: Denies: mouth pain Card: Reports: chest pain; Denies: palpitations Resp: Denies: dyspnea or non-productive cough GI: Denies: abdominal pain, nausea, vomiting or diarrhea : Denies: dysuria Musc: Denies: extremity pain Skin/Breast: Denies: rash or new lesions Neuro: Denies: weakness in extremities Psych: Reports: other (Normal mood) Melvin/Lymph: Denies: easy bruising PFSH ED PFSH: Medical History CAD (coronary atherosclerotic disease) CHF (congestive heart failure) Dyslipidemia GERD (gastroesophageal reflux disease) HTN (hypertension) Ischemic cardiomyopathy Major depressive disorder Myocardial infarct, old Surgical History H/O ventral hernia repair (07/31/21) Hx of left knee surgery Hx of left knee surgery S/P angioplasty with stent Family History Family/Other Cancer Father CAD (coronary artery disease) Mother Dementia Denies family history of Diabetes Clotting disorder Chronic kidney disease (CKD) Suicide Anesthesia complication Bleeding disorder Lung disease Stroke Social History Alcohol intake: former Lives independently: No Housing: Halfway Marital status: Single Physical Exam Const: COMMON NORMALS: alert HENMT: COMMON NORMALS: atraumatic HEAD & SCALP: atraumatic MOUTH: moist mucous membranes not abnormal Eye: COMMON NORMALS: EOMs intact bilaterally and conjunctivae normal CONJUNCTIVA: Yes conjunctivae normal Neck/C-Spine: COMMON NORMALS: full ROM and supple Resp: COMMON NORMALS: normal respiratory effort and clear to auscultation bilaterally AUSCULTATION: clear to auscultation bilaterally Cardio: COMMON NORMALS: regular rate RATE: regular rate OTHER: 2+ radial pulses b/l GI: COMMON NORMALS: Soft to palpation and non-tender PALPATION: Yes Soft to palpation Extremity: COMMON NORMALS: full ROM OTHER: no lower extremity swelling Neuro: SENSORIUM/ORIENTATION: Yes alert MOTOR EXAM: No Abnormal motor strength present and Other motor observations present (no focal motor deficits) Psych: COMMON NORMALS: speech normal SPEECH: Yes normal speech MOOD & AFFECT: Yes euthymic mood Course Vital Signs: Vital signs: Vital Signs Temperature 98.3 F 12/03/21 21:29 Pulse Rate 97 12/04/21 02:30 Respiratory Rate 17 12/04/21 02:30 Blood Pressure 138/87 12/04/21 02:30 Pulse Oximetry 92 12/04/21 02:30 MDM - General Adult Medical Decision Making [56]yo patient w/ hx of CAD s/p stent x 1, CHF, HLD presenting to the ED with evaluation of new onset sharp chest pain lasting 30 minutes lasting for 20 seconds at a time. HDS, pulse 2+ radially bilaterally, no signs of fluid overload, AAOx3, neuro exam intact. Given History and Exam today, marge levaluate for ACS, Pneumothorax, Pneumonia, Tamponade, Aortic Dissection or other emergent problems as a cause for this presentation. Workup: ECG x 2, CXR, CBC, BMP, Troponin x 2 Interventions: morphine Findings: ECG: No overt evidence of STEMI, hyperacute T waves, localizable STD or T wave inversions. No evidence of Brugada?s sign, delta wave, epsilon wave, significantly prolonged QTc, or malignant arrhythmia. No Q waves. Other Labs unremarkable for emergent problems. CXR: Without PTX, PNA, or widened mediastinum Troponin x1 within normal limit. Patient reports chest pain proved with morphine and nitro. X-ray chest negative for any acute findings. Pending second repeat troponin given onset of chest pain within 30 minutes. Case signed out to Dr. Ramirez pending reassessment Lab Data : 12/03/21 21:12/03/21 21: Radiology Impressions Chest X-Ray 12/03/21 21:29 IMPRESSION: 1. No acute cardiopulmonary process. 2. Incidental/nonacute findings are listed in the report. Laboratory Results WBC 10.3 10^3/uL (4.0-10.0) H 12/03/21 21: RBC 4.53 10^6/uL (4.1-5.3) 12/03/21 21: Hgb 11.1 g/dL (11.7-16.6) L 12/03/21: Hct 36.5 % (42.0-52.0) L 12/03/21 21: MCV 80.6 fl (80-94) 12/03/21 21: MCH 24.5 pg (28.0-34.0) L 12/03/21 21: MCHC 30.4 g/dL (30.0-36.0) 12/03/21 21: RDW 16.0 % (12.1-15.1) H 12/03/21: Plt Count 409 10^3/cmm (130-400) H 12/03/21: MPV 10.5 fL (7.4-10.4) H 12/03/21 21: Neut % (Auto) 71.0 % 12/03/21: Lymph % (Auto) 19.1 % 12/03/21: Gove % (Auto) 7.8 % 12/03/21 21: Eos % (Auto) 0.8 % 12/03/21: Baso % (Auto) 1.1 % 12/03/21: Neut # (Auto) 7.29 10^3/uL (1.8-7.7) 12/03/21 21:30 Lymph # (Auto) 2.0 10^3/uL (0.8-4.8) 12/03/21 21:30 [place]ove # (Auto) 0.8 10^3/uL (0.2-0.9) 12/03/21 21:30 Eos # (Auto) 0.1 10^3/uL (0.0-0.8) 12/03/21 21:30 Baso # (Auto) 0.1 10^3/uL (0.0-0.1) 12/03/21 21:30 Nucleated RBC % (auto) 0 % 12/03/21 21:30 Nucleated RBCs # 0.0 /100WBC 12/03/21 21:30 Sodium 137 mmol/L (136-145) 12/03/21 21: Potassium 3.9 mmol/L (3.5-5.1) 12/03/21 21:30 Chloride 99 mmol/L (98-107) 12/03/21: Carbon Dioxide 28 mmol/L (22-29) 12/03/21: Anion Gap 13.9 (5-19) 12/03/21 21:30 BUN 16 mg/dL (6-20) 12/03/21 21:30 Creatinine 0.9 mg/dL (0.7-1.2) 12/03/21 21: GFR Calculation 87.3 mL/min (90-130) L 12/03/21 21: Glucose 139 mg/dL (65-115) H 12/03/21 21:30 Calculated Osmolality 287 mOsm/kg (285-295) 12/03/21: Calcium 8.8 mg/dL (8.5-10.5) 12/03/21 21:30 Troponin T Baseline 15 ng/L (0-15) 12/03/21 21:30 Troponin T 120 Minute 16.09 ng/L (0-15) H 12/03/21 23:30 Delta Troponin T 1.09 ABS# (0-10) 12/03/21 23:30 Imaging Data Other Imaging: Radiologist's impression: [address] [place] [address] XRay Report Signed Patient: Chris Vazquez Unit #: [id number] : 1965 Age/Sex: 56 / M ADM Date: 12/03/21 Loc: ER Room/Bed: Attending Dr: Ordering Provider/Ordering MD: Jero Lennon MD Date of Service: 12/03/21 Procedure(s): XR chest 1V portable [id number] Accession Number(s): [id number] Report Number: [id number] PROCEDURE INFORMATION: Exam: XR Chest Exam date and time: 12/03/2021 9:50 PM Age: 56 years old Clinical indication: Chest wall pain; Additional info: Chest pain TECHNIQUE: Imaging protocol: XR of the chest. Views: 1 view. COMPARISON: CR XR chest 1V portable [id number] 06/07/2020 7:27 PM FINDINGS: Lungs: Lungs are clear bilaterally. Pleural spaces: No pleural effusion. No pneumothorax. Heart/Mediastinum: Stable mild enlargement of the cardiac silhouette. Mediastinal contours are unremarkable. Bones/joints: Unremarkable for age. XR/XR chest 1V portable [id number] IMPRESSION: 1. No acute cardiopulmonary process. 2. Incidental/nonacute findings are listed in the report. ? Dictated By: Elise Syed MD Signed By: Elise Syed MD Signed Date/Time: 12/03/212203 DD/ 49 Discharge Plan Discharge Patient Disposition: Home Clinical Impression: Chest pain Condition: Stable Prescriptions: No Action aspirin [Adult Low Dose Aspirin] 81 mg tablet,delayed release (DR/EC) 81 mg PO DAILY 0RF Rx Instructions: PT UNABLE TO CONFIRM MEDICATIONS. GOING BY AMY FROM [facility], AND NURSE BLAKE. furosemide 40 mg tablet 40 mg PO QAM 0RF Rx Instructions: PT UNABLE TO CONFIRM MEDICATIONS. GOING BY AMY FROM [facility], AND NURSE BLAKE. loratadine [Claritin] 10 mg tablet 10 mg PO DAILY 0RF Rx Instructions: PT UNABLE TO CONFIRM MEDICATIONS. GOING BY AMY FROM [facility], AND NURSE BLAKE. venlafaxine 150 mg capsule,extended release 24hr 150 mg PO QAM 0RF Rx Instructions: PT UNABLE TO CONFIRM MEDICATIONS. GOING BY AMY FROM [facility], AND NURSE BLAKE. simvastatin 10 mg tablet 10 mg PO .HS 0RF Rx Instructions: PT UNABLE TO CONFIRM MEDICATIONS. GOING BY AMY FROM [facility], AND NURSE BLAKE. metoprolol tartrate 25 mg tablet 12.5 mg PO BID 0RF Rx Instructions: PT UNABLE TO CONFIRM MEDICATIONS. GOING BY AMY FROM [facility], AND NURSE BLAKE. methocarbamol 750 mg tablet 1,500 mg PO QID PRN (Reason: UNKNOWN) 0RF Rx Instructions: PT UNABLE TO CONFIRM MEDICATIONS. GOING BY AMY FROM [facility], AND NURSE BLAKE. magnesium hydroxide [Milk of Magnesia] 400 mg/5 mL suspension 30 ml PO DAILY PRN (Reason: Constipation) 0RF Rx Instructions: PT UNABLE TO CONFIRM MEDICATIONS. GOING BY AMY FROM [facility], AND NURSE BLAKE. acetaminophen [Tylenol] 325 mg tablet 650 mg PO QID PRN (Reason: Pain) 0RF Rx Instructions: PT UNABLE TO CONFIRM MEDICATIONS. GOING BY AMY FROM [facility], AND NURSE BLAKE. Entresto 49-51 mg tablet 1 tab PO BID 30 Days Qty: 60 3RF quetiapine 200 mg tablet 200 mg PO .hs Qty: 30 12RF Rx Instructions: Give with 50mg dose for total dose of 250mg at HS quetiapine 50 mg tablet 50 mg PO .HS Qty: 30 0RF Rx Instructions: Give with 200mg Dose for total dose of 250mg. omeprazole 20 mg Capsule,Delayed Release(Dr/Ec) 20 mg PO DAILY 0RF Rx Instructions: PT UNABLE TO CONFIRM MEDICATIONS. GOING BY AMY FROM [facility], AND NURSE BLAKE. fluticasone propionate 50 mcg/actuation [place],Suspension 2 spray INTRANASAL DAILY 0RF Rx Instructions: PT UNABLE TO CONFIRM MEDICATIONS. GOING BY AMY FROM [facility], AND NURSE BLAKE. Zofran 4 mg tablet 4 mg PO Q6H PRN (Reason: nausea and vomiting) Qty: 20 0RF Colace 100 mg capsule 100 mg PO BID Qty: 30 0RF hydrocodone-acetaminophen 5-325 mg tablet 1 tab PO Q6H PRN (Reason: pain) Qty: 20 0RF Discharge Orders: Discharge ED (Routine); Ordered 12/04/21 Ordered By: Luis Alberto Ramirez Referrals: Raul Vergara MD [Primary Care Provider] - Taran Agee M.D [Physician] - 1-3 days Discharge Diet: Advance as tolerated Discharge Activity: Increase activity as tolerated Patient Instructions: Chest Pain (ED), Opioid Safety Activity Restrictions/Additional Instructions: Come back to the emergency room if your chest pain worsens, have any fever or chills, worsening shortness of breath, worsening exertional lightheadedness, or any new or concerning complaints. Coding Level of Care Code ED Technical Spec for Chg Fwd Exam Comprehensive Documented by User: Luis Alberto Ramirez MD 12/04/21 00:25 HPI - General Adult General: Chief complaint: Chest Pain Stated complaint: cp Time Seen by Provider: 12/03/21 21:30 [facility] ED PFSH: Medical History CAD (coronary atherosclerotic disease) CHF (congestive heart failure) Dyslipidemia GERD (gastroesophageal reflux disease) HTN (hypertension) Ischemic cardiomyopathy Major depressive disorder Myocardial infarct, old Surgical History H/O ventral hernia repair (07/31/21) Hx of left knee surgery Hx of left knee surgery S/P angioplasty with stent Family History Family/Other Cancer Father CAD (coronary artery disease) Mother Dementia Denies family history of Diabetes Clotting disorder Chronic kidney disease (CKD) Suicide Anesthesia complication Bleeding disorder Lung disease Stroke Social History Alcohol intake: former Lives independently: No Housing: Halfway Marital status: Single Course Vital Signs: Vital signs: Vital Signs Temperature 98.3 F 12/03/21 21:29 Pulse Rate 97 12/04/21 02:30 Respiratory Rate 17 12/04/21 02:30 Blood Pressure 138/87 12/04/21 02:30 Pulse Oximetry 92 12/04/21 02:30 MDM - General Adult Medical Decision Making [56]yo patient w/ hx of CAD s/p stent x 1, CHF, HLD presenting to the ED with evaluation of new onset sharp chest pain lasting 30 minutes lasting for 20 seconds at a time. HDS, pulse 2+ radially bilaterally, no signs of fluid overload, AAOx3, neuro exam intact. Given History and Exam today, marge levaluate for ACS, Pneumothorax, Pneumonia, Tamponade, Aortic Dissection or other emergent problems as a cause for this presentation. Workup: ECG x 2, CXR, CBC, BMP, Troponin x 2 Interventions: morphine Findings: ECG: No overt evidence of STEMI, hyperacute T waves, localizable STD or T wave inversions. No evidence of Brugada?s sign, delta wave, epsilon wave, significantly prolonged QTc, or malignant arrhythmia. No Q waves. Other Labs unremarkable for emergent problems. CXR: Without PTX, PNA, or widened mediastinum Troponin x1 within normal limit. Patient reports chest pain proved with morphine and nitro. X-ray chest negative for any acute findings. Pending second repeat troponin given onset of chest pain within 30 minutes. Case signed out to Dr. Ramirez pending reassessment Patient throughout troponin here is normal he feels improved he has no signs of acute coronary syndrome he is stable for discharge follow-up with cardiology re turn if worsening he understands agrees to plan. Lab Data : 12/03/21 21:30 12/03/21 21:30 Radiology Impressions Chest X-Ray 12/03/21 21:29 IMPRESSION: 1. No acute cardiopulmonary process. 2. Incidental/nonacute findings are listed in the report. Laboratory Results WBC 10.3 10^3/uL (4.0-10.0) H 12/03/21 21: RBC 4.53 10^6/uL (4.1-5.3) 12/03/21 21: Hgb 11.1 g/dL (11.7-16.6) L 12/03/21 21: Hct 36.5 % (42.0-52.0) L 12/03/21 21: MCV 80.6 fl (80-94) 12/03/21 21: MCH 24.5 pg (28.0-34.0) L 12/03/21 21: MCHC 30.4 g/dL (30.0-36.0) 12/03/21 21: RDW 16.0 % (12.1-15.1) H 12/03/21 21: Plt Count 409 10^3/cmm (130-400) H 12/03/21 21: MPV 10.5 fL (7.4-10.4) H 12/03/21: Neut % (Auto) 71.0 % 12/03/21: Lymph % (Auto) 19.1 % 12/03/21: Gove % (Auto) 7.8 % 12/03/21: Eos % (Auto) 0.8 % 12/03/21: Baso % (Auto) 1.1 % 12/03/21: Neut # (Auto) 7.29 10^3/uL (1.8-7.7) 12/03/21: Lymph # (Auto) 2.0 10^3/uL (0.8-4.8) 12/03/21: Gove # (Auto) 0.8 10^3/uL (0.2-0.9) 12/03/21: Eos # (Auto) 0.1 10^3/uL (0.0-0.8) 12/03/21: Baso # (Auto) 0.1 10^3/uL (0.0-0.1) 12/03/21: Nucleated RBC % (auto) 0 % 12/03/21: Nucleated RBCs # 0.0 /100WBC 12/03/21: Sodium 137 mmol/L (136-145) 12/03/21: Potassium 3.9 mmol/L (3.5-5.1) 12/03/21: Chloride 99 mmol/L (98-107) 12/03/21: Carbon Dioxide 28 mmol/L (22-29) 12/03/21: Anion Gap 13.9 (5-19) 12/03/21: BUN 16 mg/dL (6-20) 12/03/21: Creatinine 0.9 mg/dL (0.7-1.2) 12/03/21 21: GFR Calculation 87.3 mL/min (90-130) L 12/03/21: Glucose 139 mg/dL (65-115) H 05/25/22 21:30 Calculated Osmolality 287 mOsm/kg (285-295) 12/03/21 21:30 Calcium 8.8 mg/dL (8.5-10.5) 12/03/21 21:30 Troponin T Baseline 15 ng/L (0-15) 12/03/21 21:30 Troponin T 120 Minute 16.09 ng/L (0-15) H 12/03/21 23:30 Delta Troponin T 1.09 ABS# (0-10) 12/03/21 23:30 Discharge Plan Discharge Patient Disposition: Home Clinical Impression: Chest pain Condition: Stable Prescriptions: No Action aspirin [Adult Low Dose Aspirin] 81 mg tablet,delayed release (DR/EC) 81 mg PO DAILY 0RF Rx Instructions: PT UNABLE TO CONFIRM MEDICATIONS. GOING BY AMY FROM [facility], AND NURSE BLAKE. furosemide 40 mg tablet 40 mg PO QAM 0RF Rx Instructions: PT UNABLE TO CONFIRM MEDICATIONS. [facility]SE BLAKE. loratadine [Claritin] 10 mg tablet 10 mg PO DAILY 0RF Rx Instructions: PT UNABLE TO CONFIRM MEDICATIONS. GOING BY AMY FROM [facility], AND NURSE BLAKE. venlafaxine 150 mg capsule,extended release 24hr 150 mg PO QAM 0RF Rx Instructions: PT UNABLE TO CONFIRM MEDICATIONS. [facility] AND NURSE BLAKE. simvastatin 10 mg tablet 10 mg PO .HS 0RF Rx Instructions: PT UNABLE TO CONFIRM MEDICATIONS. [facility], AND NURSE BLAKE. metoprolol tartrate 25 mg tablet 12.5 mg PO BID 0RF Rx Instructions: PT UNABLE TO CONFIRM MEDICATIONS. [facility] AND NURSE BLAKE. methocarbamol 750 mg tablet 1,500 mg PO QID PRN (Reason: UNKNOWN) 0RF Rx Instructions: PT UNABLE TO CONFIRM MEDICATIONS. GOING BY AMY FROM [facility], AND NURSE BLAKE. magnesium hydroxide [Milk of Magnesia] 400 mg/5 mL suspension 30 ml PO DAILY PRN (Reason: Constipation) 0RF Rx Instructions: PT UNABLE TO CONFIRM MEDICATIONS. [facility] AND NURSE BLAKE. acetaminophen [Tylenol] 325 mg tablet 650 mg PO QID PRN (Reason: Pain) 0RF Rx Instructions: PT UNABLE TO CONFIRM MEDICATIONS. GOING BY AMY FROM [facility], AND NURSE HAYDEN. Entresto 49-51 mg tablet 1 tab PO BID 30 Days Qty: 60 3RF quetiapine 200 mg tablet 200 mg PO .hs Qty: 30 12RF Rx Instructions: Give with 50mg dose for total dose of 250mg at HS quetiapine 50 mg tablet 50 mg PO .HS Qty: 30 0RF Rx Instructions: Give with 200mg Dose for total dose of 250mg. omeprazole 20 mg Capsule,Delayed Release(Dr/Ec) 20 mg PO DAILY 0RF Rx Instructions: PT UNABLE TO CONFIRM MEDICATIONS. GOING BY AMY FROM [facility], AND NURSE HAYDEN. fluticasone propionate 50 mcg/actuation [place],Suspension 2 spray INTRANASAL DAILY 0RF Rx Instructions: PT UNABLE TO CONFIRM MEDICATIONS. GOING BY AMY FROM [facility], AND NURSE HAYDEN. Zofran 4 mg tablet 4 mg PO Q6H PRN (Reason: nausea and vomiting) Qty: 20 0RF Colace 100 mg capsule 100 mg PO BID Qty: 30 0RF hydrocodone-acetaminophen 5-325 mg tablet 1 tab PO Q6H PRN (Reason: pain) Qty: 20 0RF Discharge Orders: Discharge ED (Routine); Ordered 12/04/21 Ordered By: Luis Alberto Ramirez Referrals: Raul Vergara MD [Primary Care Provider] - Taran Agee M.D [Physician] - 1-3 days Discharge Diet: Advance as tolerated Discharge Activity: Increase activity as tolerated Patient Instructions: Chest Pain (ED), Opioid Safety Activity Restrictions/Additional Instructions: Come back to the emergency room if your chest pain worsens, have any fever or chills, worsening shortness of breath, worsening exertional lightheadedness, or any new or concerning complaints. Coding Level of Care Code ED Technical Spec for Ashley Fwd Exam Comprehensive
[2021-12-03 22:31] VITALS: RESP 20; O2SAT 95
[2021-12-03] MEDS: sodium chloride 0.9% 500 ML IV (22:31)
[2021-12-03] MEDS: morphine 4 mg/mL SDV 1 mL IVP (22:31)
[2021-12-03 23:00] VITALS: BP 108/82; PULSE 107; RESP 18; O2SAT 95
--- NOTE | 2021-12-03 23:29 | ECG_ITS ---
[facility] Test Date: 2021-12-03 Pat Name: Chris Vazquez Department: Room: Gender: Male [employer] Operator: : 1965 Requested By: Jero Lennon Order Number: [id number] MD: Taran Agee M.D. Measurements Intervals [place] Rate: 99 P: 59 ME: 168 QRS: 38 QRSD: 93 T: 59 QT: 341 QTc: 439 Interpretive Statements SINUS RHYTHM Compared to ECG 12/03/2021 21:38:57 No significant changes Electronically Signed On 12-04-2021 22:28:20 CDT by Taran Agee M.D. [id number]
[2021-12-03 23:30] VITALS: BP 131/77; PULSE 105; RESP 16; O2SAT 95
[2021-12-04] VITALS: BP 131/83; PULSE 104; RESP 19; O2SAT 93
[2021-12-04 00:12] LABS: Troponin 5 2HR 16.09 ng/L (0-15)
[2021-12-04 00:17] LABS: Troponin 5 2HR Delta 1.09 ABS# (0-10)
[2021-12-04 00:30] VITALS: BP 119/82; PULSE 115; RESP 16; O2SAT 93
[2021-12-04 01:00] VITALS: BP 144/99; PULSE 98; RESP 19; O2SAT 92
[2021-12-04 01:30] VITALS: BP 140/77; PULSE 106; RESP 16; O2SAT 95
[2021-12-04 02:00] VITALS: BP 128/71; PULSE 102; RESP 18; O2SAT 93
[2021-12-04 02:30] VITALS: BP 138/87; PULSE 97; RESP 17; O2SAT 92
== END 2021-12-04 02:30 | disposition home or self-care (01) ==
PROVIDERS: Emergency Medicine; Emergency Provider Emergency Medicine; PCP Internal Medicine
DX: R07.9 Chest pain, unspecified (principal); I25.10 Atherosclerotic heart disease of native coronary artery without angina pectoris; I11.0 Hypertensive heart disease with heart failure; I50.9 Heart failure, unspecified; K21.9 Gastro-esophageal reflux disease without esophagitis; I25.2 Old myocardial infarction; Z79.82 Long term (current) use of aspirin
CPT/HCPCS: 71045; 80048; 84484; 85025; 93005; 96361; 96374; 99285; J2270; J7040

== ENCOUNTER → 2021-12-18 09:20 | Outpatient (BNVA) | payer MEDICAID, SELFPAY | PROVIDERS: PCP Internal Medicine; Visit Provider Internal Medicine Cardiovascular Disease | DX: I42.8 Other cardiomyopathies (principal); I11.0 Hypertensive heart disease with heart failure; I50.33 Acute on chronic diastolic (congestive) heart failure; E78.5 Hyperlipidemia, unspecified; R07.89 Other chest pain; Z87.891 Personal history of nicotine dependence | CPT/HCPCS: 99214 ==

== ENCOUNTER → 2022-04-16 12:05 | Outpatient (BNVA) | payer MEDICAID, SELFPAY | PROVIDERS: PCP Internal Medicine; Visit Provider Internal Medicine Cardiovascular Disease | DX: R06.02 Shortness of breath (principal); I42.8 Other cardiomyopathies; I25.10 Atherosclerotic heart disease of native coronary artery without angina pectoris; I11.0 Hypertensive heart disease with heart failure; I50.812 Chronic right heart failure; E78.5 Hyperlipidemia, unspecified; I25.5 Ischemic cardiomyopathy; Z87.891 Personal history of nicotine dependence | CPT/HCPCS: 80048; 83880; 99214 ==

== ENCOUNTER 2022-07-01 08:57 | Outpatient (CLI) | payer MEDICAID, SELFPAY ==
--- NOTE | 2022-07-01 09:15 | USCV_ITS ---
George Chris Age: 57 Gender: M : 1965 Exam Date: 07/01/2022 09:16 Ordering Phys: Mary Kingston MD ([email or web address]) Technologist: Carol Devries Exam Location: [facility] – [place] Indication: cardiomyopathy BP: 130 / 92 HR: 106 Rhythm: Sinus Technical Quality: Adequate MEASUREMENTS (Male / Female) Normal Values 2D ECHO LV Diastolic Diameter PLAX 5.4 cm 4.2 - 5.9 / 3.9 - 5.3 cm LV Systolic Diameter PLAX 3.9 cm IVS Diastolic Thickness 1.5 cm 0.6 - 1.0 / 0.6 - 0.9 cm IVS Systolic Thickness 1.5 cm LVPW Diastolic Thickness 0.9 cm 0.6 - 1.0 / 0.6 - 0.9 cm LVPW Systolic Thickness 1.9 cm LVOT Diameter 2.1 cm LV Ejection Fraction 2D Teich 54.5 % LV Ejection Fraction MOD 2C 36.9 % LV Ejection Fraction 2C AL 34.5 % LA Diameter 2.9 cm LA Width 3.5 cm LA Height 5.2 cm RA Width 3.2 cm RA Height 4.3 cm Aorta at Sinotubular Diameter 2.9 cm IVC Diameter 1.7 cm M-MODE MV E Point Septal Separation 0.7 cm FINDINGS Left Ventricle Diffuse hypokinesia of the left ventricle, more so of the septum. The left ventricle is mildly dilated. LV ejection fraction around 40%, visual. The endocardium could not be delineated well Right Ventricle Appears to be of normal size and ejection fraction Right Atrium Appears to be of normal size Left Atrium Appears to be of normal size Mitral Valve No Gross abnormalities noted Aortic Valve No gross abnormalities noted Tricuspid Valve No gross abnormalities noted Pulmonic Valve Pulmonic valve not well visualized. Pericardium No pericardial effusion. Aorta Normal aortic annulus size. IVC Normal inferior vena cava. CONCLUSIONS Diffuse hypokinesia of the left ventricle, more so of the septum. The left ventricle is mildly dilated. LV ejection fraction around 40%, visual. Normal RV size and ejection fraction. Both atria appears to be normal size. There are no intracardiac masses. There is no pericardial effusion. Technically difficult study because of poor ultrasonic window Comparison with the previous study is difficult because of the difference in the technical quality. Dr Mary Kingston MD FAC (Electronically Signed) Final Date: 02 July 2022 08:41 S
== END 2022-07-01 08:58 | disposition home or self-care (01) ==
LOC: RAD 08:58
PROVIDERS: PCP Internal Medicine; Visit Provider Internal Medicine Cardiovascular Disease
DX: I42.9 Cardiomyopathy, unspecified (principal)
CPT/HCPCS: 93308

== ENCOUNTER → 2023-04-15 10:53 | Outpatient (BNVA) | payer MEDICAID, SELFPAY | PROVIDERS: PCP Internal Medicine; Visit Provider Internal Medicine Cardiovascular Disease | DX: R07.9 Chest pain, unspecified (principal); R00.0 Tachycardia, unspecified; I42.8 Other cardiomyopathies; E78.5 Hyperlipidemia, unspecified; I25.10 Atherosclerotic heart disease of native coronary artery without angina pectoris; Z87.891 Personal history of nicotine dependence; R94.31 Abnormal electrocardiogram [ECG] [EKG] | CPT/HCPCS: 93005; 99214 ==

== ENCOUNTER 2023-04-26 11:28 | Outpatient (CLI) | payer MEDICAID, SELFPAY ==
--- NOTE | 2023-04-26 12:15 | USCV_ITS ---
Chris Vazquez Age: 58 Gender: M : 1965 Exam Date: 04/26/2023 11:48 Ordering Phys: Mary Kingston MD ([email or web address]) Technologist: Carol Devries Exam Location: [facility] – [place] Indication: Cardiomyopathy, tachycardia BP: 124 / 80 HR: 98 Rhythm: Sinus Technical Quality: Adequate MEASUREMENTS (Male / Female) Normal Values 2D ECHO LV Diastolic Diameter PLAX 6.0 cm 4.2 - 5.9 / 3.9 - 5.3 cm LV Systolic Diameter PLAX 4.1 cm IVS Diastolic Thickness 1.1 cm 0.6 - 1.0 / 0.6 - 0.9 cm IVS Systolic Thickness 1.6 cm LVPW Diastolic Thickness 0.6 cm 0.6 - 1.0 / 0.6 - 0.9 cm LVPW Systolic Thickness 1.3 cm LVOT Diameter 2.0 cm LV Ejection Fraction 2D Teich 58.5 % LV Ejection Fraction MOD 2C 44.9 % LV Ejection Fraction 2C AL 45.6 % LA Diameter 3.3 cm LA Width 2.5 cm LA Height 4.6 cm RA Width 4.2 cm RA Height 4.8 cm Aorta at Sinotubular Diameter 3.3 cm IVC Diameter 1.4 cm M-MODE Aortic Annulus Diameter 2.9 cm LA Ao Ratio MM 1.2 MV E Point Septal Separation 1.1 cm DOPPLER AV Peak Velocity 137.0 cm/s LVOT Peak Velocity 89.0 cm/s AV Area Cont Eq vti 1.8 cm squared AV Area Cont Eq pk 2.1 cm squared MV Peak Velocity 91.0 cm/s MV Area PHT 5.2 cm squared Mitral E to A Ratio 1.0 MV E' Velocity 46.0 cm/s Mitral E to MV E' Ratio 7.7 Mitral E to LV E' Lateral Ratio 10.6 Mitral E to LV E' Septal Ratio 6.0 TR Peak Velocity 73.5 cm/s TR Peak Gradient 2.2 mmHg Right Atrial Pressure 5.0 mmHg Pulmonary Artery Systolic Pressu 7.2 mmHg PV Peak Velocity 116.0 cm/s RV Acceleration Time 0.1 s RV Ejection Time 0.3 s RV AcT/ET 0.5 FINDINGS Left Ventricle Diffuse hypokinesia of the left ventricular, most of the septum and the anteroseptum. LV ejection fraction around 45%.Grade I/IV diastolic dysfunction (abnormal relaxation filling pattern), normal to mildly elevated filling pressures. Mildly dilated LV cavity Right Ventricle The right ventricle is normal in size and function. Right Atrium The right atrium is normal in size. Left Atrium The left atrium is normal in size. Mitral Valve No gross abnormalities no Aortic Valve No gross abnormalities noted Tricuspid Valve No gross abnormalities noted Pulmonic Valve Mild pulmonary valve regurgitation. Pericardium Normal pericardium without effusion. Aorta Normal aortic annulus size. IVC The inferior vena cava appears normal. CONCLUSIONS Diffuse hypokinesia of the left ventricular, most of the septum and the anteroseptum. LV ejection fraction around 45%.Grade I/IV diastolic dysfunction (abnormal relaxation filling pattern), normal to mildly elevated filling pressures. Mildly dilated LV cavity Mild pulmonary valve regurgitation. There is no pericardial effusion. There are no intracardiac masses. He PASP within normal limit Compared to the study from 9 07/01/2020 to 07/01/2022, there may not be a significant change Dr Mary Kingston MD FACC (Electronically Signed) Final Date: 27 April 2023 22:47 S
== END 2023-04-26 11:29 | disposition home or self-care (01) ==
PROVIDERS: PCP Internal Medicine; Visit Provider Internal Medicine Cardiovascular Disease
DX: I42.9 Cardiomyopathy, unspecified (principal); R06.09 Other forms of dyspnea; R00.0 Tachycardia, unspecified; I51.89 Other ill-defined heart diseases; I51.7 Cardiomegaly; I37.1 Nonrheumatic pulmonary valve insufficiency
CPT/HCPCS: 93306

== ENCOUNTER → 2023-11-01 11:25 | Outpatient (BNVA) | payer MEDICAID, SELFPAY | PROVIDERS: PCP Internal Medicine; Visit Provider Internal Medicine Cardiovascular Disease | DX: I25.5 Ischemic cardiomyopathy (principal); E78.5 Hyperlipidemia, unspecified; I10 Essential (primary) hypertension | CPT/HCPCS: 99214 ==

== ENCOUNTER → 2024-05-08 11:43 | Outpatient (BNVA) | payer MEDICAID, SELFPAY | PROVIDERS: PCP Internal Medicine; Visit Provider Internal Medicine Cardiovascular Disease | DX: I25.10 Atherosclerotic heart disease of native coronary artery without angina pectoris (principal); I25.5 Ischemic cardiomyopathy; E78.5 Hyperlipidemia, unspecified; R42 Dizziness and giddiness; Z87.891 Personal history of nicotine dependence; I25.2 Old myocardial infarction; I11.0 Hypertensive heart disease with heart failure; I50.9 Heart failure, unspecified | CPT/HCPCS: 99214 ==

== ENCOUNTER → 2024-11-06 10:09 | Outpatient (BNVA) | payer MEDICAID, SELFPAY | PROVIDERS: PCP Internal Medicine; Visit Provider Nurse Practitioner Family | DX: I25.5 Ischemic cardiomyopathy (principal); I25.10 Atherosclerotic heart disease of native coronary artery without angina pectoris; I11.0 Hypertensive heart disease with heart failure; I50.812 Chronic right heart failure; R00.0 Tachycardia, unspecified; R06.09 Other forms of dyspnea; E78.5 Hyperlipidemia, unspecified; R00.2 Palpitations | CPT/HCPCS: 99214 ==

== ENCOUNTER 2024-12-07 09:37 | Outpatient (CLI) | payer MEDICAID, SELFPAY ==
[2024-12-07 10:08] VITALS: BMI 33.3
--- NOTE | 2024-12-07 10:11 | ECG_ITS ---
[facility] Test Date: 2024-12-07 Pat Name: Chris Vazquez Department: Room: Gender: Male Loan Officer Assistant: : 1965 Requested By: April Barry Order Number: [id number] Elam MD: SHOLA BARCLAY Interpretive Statements Lung unchanged pre/post procedure; Intraprocedure shortess of breath; Symptoms resoled by discharge NOTE: Please note that this is the electrocardiogram portion of the Lexiscan/Sestamibi stress test. The perfusion scan will be documented separately. DATA: Baseline heart rate was 92 beats per minute. Baseline blood pressure was 121/77 millimeters of mercury. Target heart rate was 161. Maximum heart rate achieved was 121. which was 75% of the predicted target heart rate. Maximum blood pressure was 132/87 millimeters of mercury. The reason for ending the test was completion of the protocol. The patient did not experience any symptoms. ELECTROCARDIOGRAM: BASELINE: Sinus rhythm. Normal axis. Otherwise, no ST-T changes suggestive of ischemia noted. No arrhythmia noted. EXERCISE: After Lexiscan injection, no ST-T changes suggestive of ischemic noted. No arrhythmia noted. CONCLUSION: Please note due to baseline abnormality of the EKG specificity and sensitivity of the EKG portion of LexiScan MIBI stress test will be low 1. EKG not suggestive of ischemia 2. Lexiscan injection unremarkable. 3. Perfusion scan will be documented separately. Electronically Signed On 12-17-2024 20:39:39 CDT by SHOLA BARCLAY [id number] [id number]
--- NOTE | 2024-12-07 10:12 | NMCV_ITS ---
NM raghu perf SPECT r/s* [id number] Vazquez Chris Age: 59 Gender: M : 1965 Exam Date: 12/07/2024 11:20 Ordering Phys: April Barry Technologist: RANCHO Richardson Exam Location: [facility] Indications: cp STRESS TEST Please see separate stress test report in [facility] for full findings IMAGE PROTOCOL Rest/Stress 1 Lexiscan Day Radiopharmaceutical Dose (mCi) Administration Site Administered by Rest: Tc-99m 10.5 IV Nu Mancini, EXPERIENCE DESIGNER Sestamibi Stress:Tc-99m 33 IV Nu Parkergle, EXPERIENCE DESIGNER Sestamibi Rest: 07-Dec-2024 60 Discovery 630 Stress: 07-Dec-2024 30 Discovery 630 0.4mg Lexiscan. Images obtained in supine and prone position. Decreased quality of prone image due to patient size. SPECT RESULTS Technical Quality: Good Raw Data Analysis: Soft tissue attenuation Image Corrections: Patient motion artifact - motion correction applied Summed Stress Score: 3 Summed Rest Score: 4 Summed Difference Score: 2 PERFUSION FINDINGS Small to medium size area of patchy decreased tracer uptake noted in mid to distal inferior and mid anterior wall FUNCTIONAL RESULTS (calculated via Gated SPECT) Stress Image LV EF (%): 35 Stress EDV (mL):162 TID: 0.97 Stress ESV (mL):105 FUNCTIONAL FINDINGS: Global hypokinesis IMPRESSIONS No significant ischemia noted Small to medium patchy area of fixed perfusion defect suggestive of possible old myocardial infarction versus scarring in mid to distal inferior and mid anterior wall noted without lily-infarct ischemia. Liseth Pettit MD (Electronically Signed) Final Date: 15 December 2024 19:24 S
[2024-12-07] MEDS: regadenoson 0.4 Mg/5 ml Syringe IVP (11:48)
[2024-12-07 12:04] VITALS: BP 113/72; PULSE 100
== END 2024-12-07 09:38 | disposition home or self-care (01) ==
PROVIDERS: PCP Internal Medicine; Visit Provider Nurse Practitioner Family
DX: R06.02 Shortness of breath (principal); R93.1 Abnormal findings on diagnostic imaging of heart and coronary circulation
CPT/HCPCS: 36415; 78452; 93017; 96374; A9500; J2785